=== PATIENT | male | born 1975 | race African-American/Black ===

== ENCOUNTER 2023-03-29 16:53 | Emergency (ER) | payer SELFPAY ==
[~2023-03-29 16:53] MED LIST: Iopamidol 370 76% 100 ML VIAL ONE
[2023-03-29] MEDS ORDERED: Aspirin Chewable 81 MG TAB ONE (17:50)
[2023-03-29 18:07] LABS: Hematocrit 45.1 % (38.8-50.0); Hemoglobin 14.8 g/dL (13.5-17.5); Mean Corpuscular HGB CONC 32.8 g/dL (32.0-36.0); Mean Corpuscular Hemoglobin 27.6 pg (27.0-33.0); Mean Corpuscular Volume 84.1 fl (81.2-95.1); Mean Platelet Volume 11.9 fl (7.4-10.4); Platelet Count 198 10x3/uL (150-450); RBC Distribution Width 13.3 % (11.5-14.5); Red Blood Cell (RBC) Count 5.36 10x6/uL (4.32-5.72); White Blood Cell (WBC) Count 6.1 10x3/uL (3.5-10.5)
[2023-03-29 18:08] LABS: ALT (SGPT) 13 U/L (8-55); AST (SGOT) 17 U/L (5-34); Albumin 4.1 g/dL (3.5-5.0); Alkaline Phosphatase 63 U/L (40-110); Anion Gap 12 mmol/L (10-20); BUN (Urea Nitrogen) 14 mg/dL (8.9-20.6); Bilirubin, Total 0.3 mg/dL (0.2-1.2); Calc. Creatinine Clearance 0 mL/min (70-130); Calcium 8.8 mg/dL (7.8-10.44); Carbon Dioxide 24 mmol/L (22-29); Chloride 108 mmol/L (98-107); Estimated GFR 78; Globulin 2.4 g/dL (2.4-3.5); Glucose 128 mg/dL (70-105); Lipase 37 U/L (8-78); Protein, Total 6.5 g/dL (6.0-8.3); Sodium 140 mmol/L (136-145)
[2023-03-29 18:13] LABS: Troponin I Less than 0.010 ng/mL (< 0.028)
[2023-03-29 18:34] LABS: MDiff Complete? YES
[2023-03-29 18:35] LABS: SARS-CoV-2 NAA Rapid Test Not Detected (NotDetected)
[2023-03-29 18:37] LABS: Band 1 % (5-11); Eosinophils 5 % (0-10); Lymphocytes 36 % (21-51); Monocytes 5 % (0-10); Neutrophil 53 % (42-75); Platelet Adequacy Comment Appears Adequate; RBC Morph Comment Within Normal Limits
== END 2023-03-29 19:39 | disposition home or self-care (01) ==
LOC: CSHERS 16:53
DX: R07.9 Chest pain, unspecified (principal); R91.8 Other nonspecific abnormal finding of lung field; J45.909 Unspecified asthma, uncomplicated; I51.7 Cardiomegaly; F17.210 Nicotine dependence, cigarettes, uncomplicated
CPT/HCPCS: 71045; 71275; 80053; 83690; 83880; 84484; 85025; 85379; 93005; 96360; 96361; Q9967

== ENCOUNTER 2023-12-04 15:58 | Emergency (ER) | payer BC ==
[2023-12-04] MEDS ORDERED: Ketorolac Tromethamine 30 MG (1 mL) VIAL ONE (17:09)
[2023-12-04] MEDS ORDERED: Lidocaine 4% Patch ONE (17:30)
== END 2023-12-04 17:38 | disposition home or self-care (01) ==
LOC: CSHERS 15:58
DX: M54.50 Low back pain, unspecified (principal); F17.210 Nicotine dependence, cigarettes, uncomplicated
CPT/HCPCS: 96372; 99283; J1885